=== PATIENT | female | born 1940 | race Caucasian/White ===

== ENCOUNTER 2017-01-29 16:04 | Observation (INO) | payer OTHER ==
[~2017-01-29] VITALS: Ht 165.1 cm; Wt 87.9 kg
[~2017-01-29 16:04] MED LIST: ADULT LOW DOSE81 M1 PO; ALPRAZOLAM0.5 MG PO; AUGMENTIN875 MG PO; CLARITIN5 MG PO; DESYREL100 MG PO; DIOVAN HCT 1601 EACH PO; FISH OIL SOFTG1 EACH PO; FLUCONAZOLE150 MG PO; GLUCOSAMINE &1 EACH PO; HYZAAR 100-21 TABLET PO; K-DUR10 MEQ PO; KLOR-CON 88 MEQ PO; LOPERAMIDE2 M1 PO; LOPRESSOR25 MG PO; MUCINEX1200 MG PO; ONDANSETRON HCL4 MG PO; PRAVASTATIN SOD80 MG PO; PRILOSEC20 MG PO; SIMVASTATIN5 MG PO; TYLENOL WITH C1 EACH PO
[2017-01-29 16:59] LABS: HEMATOCRIT 42.6 % (36.0-46.0); MCH 31.7 PG (29.0-34.0); MCV 93.2 FL (83-99); MEAN PLAT.VOLUME 8.9 uM^3 (9.5-12.4); PLATELET COUNT 324 K/uL (156-360); RBC DIS.WIDTH-SD 41.2 % (39-53); RED BLOOD COUNT 4.57 M/uL (3.80-5.20); WHITE BLOOD COUNT 7.5 K/uL (4.1-10.2)
[2017-01-29 17:11] LABS: CHLORIDE 104 mEq/L (99-109); POTASSIUM 3.9 mEq/L (3.7-5.4); SODIUM 141 mEq/L (136-147)
[2017-01-29 17:12] LABS: GLUCOSE 102 mg/dL (70-99)
[2017-01-29 17:14] LABS: ANION GAP 9 MEQ/L (2-14)
[2017-01-29 17:16] LABS: GFR ESTIMATE (CALCULATED) > 59 mL/min/
[2017-01-29 17:17] LABS: UREA NITROGEN (BUN) 18 mg/dL (9-23)
[2017-01-29 17:21] LABS: TROP-I INTERPRETATION NEGATIVE; TROPONIN-I < 0.01 ng/mL (0.0-0.30)
[2017-01-29 19:35] VITALS: BP 191/79
[2017-01-30] VITALS: BP 156/81
[2017-01-30 01:15] LABS: TROP-I INTERPRETATION NEGATIVE; TROPONIN-I < 0.01 ng/mL (0.0-0.30)
[2017-01-30 03:02] VITALS: BP 103/55
[2017-01-30 07:21] VITALS: BP 112/67
[2017-01-30 10:08] LABS: TROP-I INTERPRETATION NEGATIVE; TROPONIN-I < 0.01 ng/mL (0.0-0.30)
[2017-01-30 11:00] VITALS: BP 128/82
[2017-01-30] MEDS ORDERED: NITROSTAT0.4 MG SL (11:38)
[2017-01-30] MEDS ORDERED: LOSARTAN-HCTZ1 EAC1 PO (11:40)
[2017-01-30] MEDS ORDERED: ASPIR-LOW81 MG PO (11:41)
[2017-01-30] MEDS ORDERED: PANTOPRAZOLE SO40 MG PO (11:42)
== END 2017-01-30 13:42 | disposition home or self-care (01) ==
LOC: EME 16:04 → EDOF 18:05 → 5WEST 18:05 → ENRESERV 18:28 → 5WEST 19:15 → EDPENDDISTM 01-30 → EDPENDDISDT 01-30 → 5WEST 01-30 13:42
PROVIDERS: Emergency Medicine; Family Medicine
DX: R07.9 Chest pain, unspecified (principal); R94.31 Abnormal electrocardiogram [ECG] [EKG]; I10 Essential (primary) hypertension; E78.5 Hyperlipidemia, unspecified; F45.8 Other somatoform disorders; M19.90 Unspecified osteoarthritis, unspecified site; K21.9 Gastro-esophageal reflux disease without esophagitis; Z87.19 Personal history of other diseases of the digestive system; K86.9 Disease of pancreas, unspecified; Z96.651 Presence of right artificial knee joint; F41.9 Anxiety disorder, unspecified; E11.9 Type 2 diabetes mellitus without complications; D64.9 Anemia, unspecified
CPT/HCPCS: 71020; 80048; 83880; 84484; 85027; 93005; 99281; 99284; G0378

== ENCOUNTER 2017-06-25 23:39 | Emergency (ER) | payer OTHER ==
[~2017-06-25] VITALS: Ht 167.6 cm; Wt 89.4 kg
[~2017-06-25 23:39] MED LIST changes: +ASPIR-LOW81 MG PO; +LOSARTAN-HCTZ1 EAC1 PO; +NITROSTAT0.4 MG SL; +PANTOPRAZOLE SO40 MG PO
[2017-06-26 02:10] LABS: APPEARANCE CLEAR ((CLEAR)); BILIRUBIN NEGATIVE; BLOOD NEGATIVE; COLOR YELLOW ((YELLOW)); GLUCOSE (STRIP) NEGATIVE; KETONES NEGATIVE; LEUKOCYTES NEGATIVE; NITRITE NEGATIVE; PROTEIN (STRIP) NEGATIVE; SPECIFIC GRAVITY 1.014 (1.000-1.030); UROBILINOGEN 0.2 MG/DL (0.2-1.0)
[2017-06-26 02:55] LABS: HEMATOCRIT 40.2 % (36.0-46.0); HEMOGLOBIN 13.2 G/DL (11.9-15.5); MCH 30.1 PG (29.0-34.0); MCHC 32.8 G/DL (30.0-36.0); MCV 91.8 FL (83-99); PLATELET COUNT 354 K/uL (156-360); RBC DIS.WIDTH-CV 12.4 % (11.8-14.6); RBC DIS.WIDTH-SD 41.9 % (39-53); RED BLOOD COUNT 4.38 M/uL (3.80-5.20); WHITE BLOOD COUNT 7.4 K/uL (4.1-10.2)
[2017-06-26 03:02] LABS: INTER. NORMALIZED RATIO 0.9
[2017-06-26 03:03] LABS: CHLORIDE 102 mEq/L (99-109); POTASSIUM 3.6 mEq/L (3.7-5.4); PTT 27.5 SEC (25-37); SODIUM 140 mEq/L (136-147)
[2017-06-26 03:05] LABS: GLUCOSE 101 mg/dL (70-99)
[2017-06-26 03:09] LABS: CREATININE 0.8 mg/dL (0.6-1.3); GFR ESTIMATE (CALCULATED) > 59 mL/min/; UREA NITROGEN (BUN) 17 mg/dL (9-23)
[2017-06-26 06:02] LABS: CREATINE KINASE 120 IU/L (1-294)
[2017-06-26 06:31] VITALS: BP 161/81
== END 2017-06-26 06:32 | disposition home or self-care (01) ==
LOC: EME 23:39
PROVIDERS: Physician Assistant
DX: M25.551 Pain in right hip (principal); M79.604 Pain in right leg; R10.31 Right lower quadrant pain; M54.5 Low back pain; G89.29 Other chronic pain; K44.9 Diaphragmatic hernia without obstruction or gangrene; K57.30 Diverticulosis of large intestine without perforation or abscess without bleeding; M48.061 Spinal stenosis, lumbar region without neurogenic claudication; M46.96 Unspecified inflammatory spondylopathy, lumbar region; M51.36 Other intervertebral disc degeneration, lumbar region; I10 Essential (primary) hypertension; E78.5 Hyperlipidemia, unspecified; E16.2 Hypoglycemia, unspecified; K21.9 Gastro-esophageal reflux disease without esophagitis; J45.909 Unspecified asthma, uncomplicated; M17.11 Unilateral primary osteoarthritis, right knee; Z96.651 Presence of right artificial knee joint; Z96.612 Presence of left artificial shoulder joint; Z90.49 Acquired absence of other specified parts of digestive tract; Z90.89 Acquired absence of other organs; Z90.710 Acquired absence of both cervix and uterus; Z98.890 Other specified postprocedural states; Z91.041 Radiographic dye allergy status
CPT/HCPCS: 74176; 80048; 81003; 82550; 83735; 85027; 85610; 85730; 93971; J1200; J2405; J7030

== ENCOUNTER 2017-07-27 14:40 | Observation (INO) | payer OTHER ==
[~2017-07-27] VITALS: Ht 165.1 cm; Wt 86.9 kg
[~2017-07-27 14:40] MED LIST changes: +DESYREL 150 MG150 MG PO; -DESYREL100 MG PO
[2017-07-27 15:28] LABS: HEMATOCRIT 35.9 % (36.0-46.0); HEMOGLOBIN 11.9 G/DL (11.9-15.5); MCH 31.2 PG (29.0-34.0); MCHC 33.1 G/DL (30.0-36.0); PLATELET COUNT 280 K/uL (156-360); RBC DIS.WIDTH-CV 14.7 % (11.8-14.6); RBC DIS.WIDTH-SD 50.9 % (39-53); RED BLOOD COUNT 3.82 M/uL (3.80-5.20); WHITE BLOOD COUNT 6.8 K/uL (4.1-10.2)
[2017-07-27 15:37] LABS: CHLORIDE 106 mEq/L (99-109)
[2017-07-27 15:38] LABS: POTASSIUM 4.1 mEq/L (3.7-5.4); SODIUM 141 mEq/L (136-147)
[2017-07-27 15:39] LABS: GLUCOSE 96 mg/dL (70-99)
[2017-07-27 15:43] LABS: CREATININE 0.8 mg/dL (0.6-1.3); GFR ESTIMATE (CALCULATED) > 59 mL/min/
[2017-07-27 15:44] LABS: UREA NITROGEN (BUN) 15 mg/dL (9-23)
[2017-07-27] MEDS ORDERED: BIOTIN 5000MCG PO (18:24)
[2017-07-27] MEDS ORDERED: VITAMIN B-122500 MCG SL (18:25)
[2017-07-27] MEDS ORDERED: VALSARTAN-HCTZ1 EAC2 PO (18:25)
[2017-07-27] MEDS ORDERED: OMEPRAZOLE40 M1 PO (18:26)
[2017-07-27] MEDS ORDERED: MAGNESIUM500 MG PO (18:27)
[2017-07-27 22:26] VITALS: BP 147/68
[2017-07-27 22:53] LABS: BASOPHIL (%) 0.6 % (0-1); EOSINOPHIL (%) 2.9 % (0-5); EOSINOPHIL COUNT 0.2 K/uL (0-0.3); HEMATOCRIT 33.9 % (36.0-46.0); HEMOGLOBIN 11.4 G/DL (11.9-15.5); IMMATURE GRANULOCYTE (%) 0.3 % (0.0-0.7); LYMPHOCYTE (%) 28.7 % (15-42); LYMPHOCYTE COUNT 1.9 K/uL (1.0-2.8); MCH 31.2 PG (29.0-34.0); MCHC 33.6 G/DL (30.0-36.0); MCV 92.9 FL (83-99); MONOCYTE (%) 13.6 % (3-12); MONOCYTE COUNT 0.9 K/uL (0-0.8); NEUTROPHIL (%) 53.9 % (45-76); NEUTROPHIL COUNT 3.5 K/uL (1.8-6.4); PLATELET COUNT 266 K/uL (156-360); RBC DIS.WIDTH-CV 14.8 % (11.8-14.6); RBC DIS.WIDTH-SD 50.8 % (39-53); RED BLOOD COUNT 3.65 M/uL (3.80-5.20); WHITE BLOOD COUNT 6.6 K/uL (4.1-10.2)
[2017-07-27 22:59] LABS: PTT 29.9 SEC (25-37)
[2017-07-28 00:11] VITALS: BP 146/67
[2017-07-28 04:12] VITALS: BP 111/55
[2017-07-28 06:27] LABS: BASOPHIL (%) 0.8 % (0-1); EOSINOPHIL (%) 3.2 % (0-5); EOSINOPHIL COUNT 0.2 K/uL (0-0.3); HEMATOCRIT 32.1 % (36.0-46.0); HEMOGLOBIN 10.4 G/DL (11.9-15.5); IMMATURE GRANULOCYTE (%) 0.2 % (0.0-0.7); LYMPHOCYTE (%) 30.9 % (15-42); LYMPHOCYTE COUNT 1.5 K/uL (1.0-2.8); MCH 30.1 PG (29.0-34.0); MCHC 32.4 G/DL (30.0-36.0); MONOCYTE (%) 13.1 % (3-12); MONOCYTE COUNT 0.7 K/uL (0-0.8); NEUTROPHIL (%) 51.8 % (45-76); NEUTROPHIL COUNT 2.6 K/uL (1.8-6.4); PLATELET COUNT 250 K/uL (156-360); RBC DIS.WIDTH-CV 14.8 % (11.8-14.6); RBC DIS.WIDTH-SD 50.9 % (39-53); RED BLOOD COUNT 3.45 M/uL (3.80-5.20)
[2017-07-28 07:27] LABS: ALBUMIN 3.2 G/DL (3.2-4.8); ALKALINE PHOSPHATASE 48 IU/L (3-129); ALT (GPT) 8 IU/L (3-49); AST (GOT) 12 IU/L (2-34); CHLORIDE 106 MEQ/L (99-109); CREATININE 0.7 MG/DL (0.6-1.3); GFR ESTIMATE (CALCULATED) > 59 mL/min/; GLUCOSE 116 mg/dL (70-99); POTASSIUM 3.9 MEQ/L (3.7-5.4); SODIUM 140 MEQ/L (136-147); TOTAL BILIRUBIN 0.4 MG/DL (0.0-1.0); TOTAL PROTEIN 5.2 G/DL (6.4-8.3); UREA NITROGEN (BUN) 12 mg/dL (9-23)
[2017-07-28 07:56] VITALS: BP 129/61
[2017-07-28 13:25] VITALS: BP 123/78
[2017-07-28 14:57] LABS: BASOPHIL (%) 0.8 % (0-1); EOSINOPHIL (%) 2.3 % (0-5); EOSINOPHIL COUNT 0.1 K/uL (0-0.3); HEMATOCRIT 35.2 % (36.0-46.0); HEMOGLOBIN 11.5 G/DL (11.9-15.5); IMMATURE GRANULOCYTE (%) 0.4 % (0.0-0.7); LYMPHOCYTE (%) 26.6 % (15-42); LYMPHOCYTE COUNT 1.4 K/uL (1.0-2.8); MCH 30.8 PG (29.0-34.0); MCHC 32.7 G/DL (30.0-36.0); MCV 94.4 FL (83-99); MONOCYTE (%) 10.1 % (3-12); MONOCYTE COUNT 0.5 K/uL (0-0.8); NEUTROPHIL (%) 59.8 % (45-76); NEUTROPHIL COUNT 3.1 K/uL (1.8-6.4); PLATELET COUNT 254 K/uL (156-360); RBC DIS.WIDTH-CV 14.9 % (11.8-14.6); RBC DIS.WIDTH-SD 51.6 % (39-53); RED BLOOD COUNT 3.73 M/uL (3.80-5.20); WHITE BLOOD COUNT 5.2 K/uL (4.1-10.2)
[2017-07-28 20:11] VITALS: BP 107/71
[2017-07-28 23:12] VITALS: BP 167/85
[2017-07-29 03:26] VITALS: BP 99/54
[2017-07-29 05:36] LABS: BASOPHIL (%) 0.5 % (0-1); EOSINOPHIL COUNT 0.2 K/uL (0-0.3); HEMATOCRIT 32.7 % (36.0-46.0); HEMOGLOBIN 10.9 G/DL (11.9-15.5); IMMATURE GRANULOCYTE (%) 0.4 % (0.0-0.7); LYMPHOCYTE COUNT 1.4 K/uL (1.0-2.8); MCH 31.2 PG (29.0-34.0); MCHC 33.3 G/DL (30.0-36.0); MCV 93.7 FL (83-99); MONOCYTE (%) 10.6 % (3-12); MONOCYTE COUNT 0.6 K/uL (0-0.8); NEUTROPHIL (%) 61.5 % (45-76); NEUTROPHIL COUNT 3.5 K/uL (1.8-6.4); PLATELET COUNT 262 K/uL (156-360); RBC DIS.WIDTH-CV 14.6 % (11.8-14.6); RBC DIS.WIDTH-SD 50.6 % (39-53); RED BLOOD COUNT 3.49 M/uL (3.80-5.20); WHITE BLOOD COUNT 5.7 K/uL (4.1-10.2)
[2017-07-29 08:54] VITALS: BP 146/81
[2017-07-29 11:19] VITALS: BP 133/72
[2017-07-29 15:03] LABS: BASOPHIL (%) 0.4 % (0-1); EOSINOPHIL (%) 1.1 % (0-5); EOSINOPHIL COUNT 0.1 K/uL (0-0.3); HEMATOCRIT 38.6 % (36.0-46.0); HEMOGLOBIN 12.6 G/DL (11.9-15.5); IMMATURE GRANULOCYTE (%) 0.5 % (0.0-0.7); LYMPHOCYTE COUNT 1.3 K/uL (1.0-2.8); MCH 30.6 PG (29.0-34.0); MCHC 32.6 G/DL (30.0-36.0); MCV 93.7 FL (83-99); MONOCYTE (%) 8.9 % (3-12); MONOCYTE COUNT 0.7 K/uL (0-0.8); NEUTROPHIL (%) 73.1 % (45-76); PLATELET COUNT 326 K/uL (156-360); RBC DIS.WIDTH-CV 14.6 % (11.8-14.6); RBC DIS.WIDTH-SD 50.5 % (39-53); RED BLOOD COUNT 4.12 M/uL (3.80-5.20); WHITE BLOOD COUNT 8.2 K/uL (4.1-10.2)
[2017-07-29 19:11] VITALS: BP 131/73
[2017-07-29 23:26] LABS: BASOPHIL (%) 0.4 % (0-1); EOSINOPHIL (%) 1.7 % (0-5); EOSINOPHIL COUNT 0.1 K/uL (0-0.3); HEMATOCRIT 32.1 % (36.0-46.0); HEMOGLOBIN 10.9 G/DL (11.9-15.5); IMMATURE GRANULOCYTE (%) 0.4 % (0.0-0.7); LYMPHOCYTE (%) 16.8 % (15-42); LYMPHOCYTE COUNT 1.2 K/uL (1.0-2.8); MCH 31.8 PG (29.0-34.0); MCV 93.6 FL (83-99); MONOCYTE (%) 10.8 % (3-12); MONOCYTE COUNT 0.8 K/uL (0-0.8); NEUTROPHIL (%) 69.9 % (45-76); NEUTROPHIL COUNT 4.9 K/uL (1.8-6.4); PLATELET COUNT 279 K/uL (156-360); RBC DIS.WIDTH-CV 14.6 % (11.8-14.6); RBC DIS.WIDTH-SD 50.8 % (39-53); RED BLOOD COUNT 3.43 M/uL (3.80-5.20)
[2017-07-30 00:12] VITALS: BP 101/51
[2017-07-30 04:29] VITALS: BP 104/56
[2017-07-30 05:54] LABS: BASOPHIL (%) 0.3 % (0-1); EOSINOPHIL (%) 1.6 % (0-5); EOSINOPHIL COUNT 0.1 K/uL (0-0.3); HEMATOCRIT 32.2 % (36.0-46.0); HEMOGLOBIN 10.4 G/DL (11.9-15.5); IMMATURE GRANULOCYTE (%) 0.3 % (0.0-0.7); LYMPHOCYTE (%) 17.6 % (15-42); LYMPHOCYTE COUNT 1.2 K/uL (1.0-2.8); MCH 30.1 PG (29.0-34.0); MCHC 32.3 G/DL (30.0-36.0); MCV 93.3 FL (83-99); MONOCYTE (%) 13.3 % (3-12); MONOCYTE COUNT 0.9 K/uL (0-0.8); NEUTROPHIL (%) 66.9 % (45-76); NEUTROPHIL COUNT 4.5 K/uL (1.8-6.4); PLATELET COUNT 269 K/uL (156-360); RBC DIS.WIDTH-CV 14.8 % (11.8-14.6); RBC DIS.WIDTH-SD 51.3 % (39-53); RED BLOOD COUNT 3.45 M/uL (3.80-5.20); WHITE BLOOD COUNT 6.8 K/uL (4.1-10.2)
[2017-07-30 07:48] VITALS: BP 130/69
[2017-07-30 11:23] VITALS: BP 105/64
[2017-07-30] MEDS ORDERED: BENTYL20 MG PO (15:00)
[2017-07-30 15:10] LABS: BASOPHIL (%) 0.5 % (0-1); EOSINOPHIL (%) 1.1 % (0-5); EOSINOPHIL COUNT 0.1 K/uL (0-0.3); HEMOGLOBIN 12.6 G/DL (11.9-15.5); IMMATURE GRANULOCYTE (%) 0.4 % (0.0-0.7); LYMPHOCYTE (%) 17.6 % (15-42); LYMPHOCYTE COUNT 1.5 K/uL (1.0-2.8); MCH 31.1 PG (29.0-34.0); MCHC 32.3 G/DL (30.0-36.0); MCV 96.3 FL (83-99); MONOCYTE (%) 9.5 % (3-12); MONOCYTE COUNT 0.8 K/uL (0-0.8); NEUTROPHIL (%) 70.9 % (45-76); NEUTROPHIL COUNT 6.1 K/uL (1.8-6.4); PLATELET COUNT 294 K/uL (156-360); RBC DIS.WIDTH-CV 14.9 % (11.8-14.6); RED BLOOD COUNT 4.05 M/uL (3.80-5.20); WHITE BLOOD COUNT 8.6 K/uL (4.1-10.2)
== END 2017-07-30 16:55 | disposition home or self-care (01) ==
LOC: EME 14:40 → EDOF 18:15 → 5WEST 18:15 → ENRESERV 19:16 → 5WEST 21:59 → EME 07-28 16:30 → 5WEST 07-30 16:55
PROVIDERS: Internal Medicine; Specialist
PROC: 0DJ08ZZ Inspection of Upper Intestinal Tract, Via Natural or Artificial Opening Endoscopic (ICD-10-PCS; principal; 2017-07-28)
PROC: 0DBN8ZX Excision of Sigmoid Colon, Via Natural or Artificial Opening Endoscopic, Diagnostic (ICD-10-PCS; 2017-07-29)
DX: K62.5 Hemorrhage of anus and rectum (principal); M19.90 Unspecified osteoarthritis, unspecified site; I10 Essential (primary) hypertension; E78.5 Hyperlipidemia, unspecified; M54.9 Dorsalgia, unspecified; D64.9 Anemia, unspecified; K29.70 Gastritis, unspecified, without bleeding; K44.9 Diaphragmatic hernia without obstruction or gangrene; K64.8 Other hemorrhoids; K57.30 Diverticulosis of large intestine without perforation or abscess without bleeding; R10.13 Epigastric pain; Z87.19 Personal history of other diseases of the digestive system; D13.6 Benign neoplasm of pancreas; K21.9 Gastro-esophageal reflux disease without esophagitis; Z96.651 Presence of right artificial knee joint; Z96.612 Presence of left artificial shoulder joint; Z90.49 Acquired absence of other specified parts of digestive tract; Z90.710 Acquired absence of both cervix and uterus; Z91.041 Radiographic dye allergy status
CPT/HCPCS: 74250; 80048; 80053; 85025; 85025 91; 85027; 85610; 85730; 86850; 86900; 86901; 88305; 99281; 99285; C9113; G0378; J2250